=== PATIENT | female | born 1980 | race Caucasian/White ===

== ENCOUNTER 2020-04-13 14:29 | Emergency (ER) | payer OTHER ==
[~2020-04-13] VITALS: Ht 157.5 cm; Wt 72.6 kg
[2020-04-13 15:00] VITALS: BP_SYST 143
[2020-04-13] MEDS ORDERED: NAPR-1172 PO (16:38)
[2020-04-13] MEDS ORDERED: HYDROcodone/ACETAMIN 5-325 MG TAB (NORCO/ VICODIN) PO ONE (16:45)
[2020-04-13] MEDS ORDERED: HYDROcodone/ACETAMIN 5-325 MG TAB (NORCO/ VICODIN) ONE (16:50)
[2020-04-13 16:55] VITALS: BP_SYST 140
== END 2020-04-13 16:55 | disposition home or self-care (01) ==
LOC: SED 14:29
DX: S63.591A Other specified sprain of right wrist, initial encounter (principal); Y04.2XXA Assault by strike against or bumped into by another person, initial encounter; Y93.89 Activity, other specified; Y92.89 Other specified places as the place of occurrence of the external cause; Y99.8 Other external cause status
CPT/HCPCS: 99283